=== PATIENT | male | born 1960 | race Caucasian/White ===

== ENCOUNTER 2024-01-19 11:47 | Day surgery (SDC) | payer OTHER ==
[2024-01-19 12:44] VITALS: BP 111/68; TEMP 97.4
[2024-01-19] MEDS ORDERED: PHENYLEPHRINE-NS 100 MCG/ML 10 ML SYRINGE ONE (13:32)
[2024-01-19] MEDS ORDERED: PROPOFOL 20 ML ONE (14:08)
== END 2024-01-19 14:55 | disposition home or self-care (01) ==
LOC: CSHSDC 11:47
PROVIDERS: ATTEND Internal Medicine Cardiovascular Disease
PROC: 5A2204Z Restoration of Cardiac Rhythm, Single (ICD-10-PCS; principal; 2024-01-19)
DX: I48.19 Other persistent atrial fibrillation (principal); I11.0 Hypertensive heart disease with heart failure; I50.22 Chronic systolic (congestive) heart failure; I25.2 Old myocardial infarction; M10.9 Gout, unspecified; M19.90 Unspecified osteoarthritis, unspecified site; I25.10 Atherosclerotic heart disease of native coronary artery without angina pectoris; G47.30 Sleep apnea, unspecified; E11.9 Type 2 diabetes mellitus without complications; Z79.84 Long term (current) use of oral hypoglycemic drugs; Z79.899 Other long term (current) drug therapy; Z79.51 Long term (current) use of inhaled steroids; Z79.01 Long term (current) use of anticoagulants; Z79.82 Long term (current) use of aspirin; Z88.5 Allergy status to narcotic agent; Z88.8 Allergy status to other drugs, medicaments and biological substances; Z90.89 Acquired absence of other organs; Z98.890 Other specified postprocedural states
CPT/HCPCS: 92960; 93005; 93010; J2704

== ENCOUNTER 2025-02-01 09:41 | Day surgery (SDC) | payer OTHER ==
[2025-01-24 14:55] VITALS: BMI 37.8
[2025-02-01] MEDS ORDERED: Oxymetazoline HCl 0.05% (15 ML) ONE (10:20)
[2025-02-01] MEDS ORDERED: AFRIN NASAL MIST 15 ML BOT ONE ×2 (10:30→13:25)
[2025-02-01 11:13] LABS: #Basophils 0.03 10x3/uL (0.0-0.2); #Eosinophils 0.06 10x3/uL (0.0-0.5); #Monocytes 0.67 10x3/uL (0.0-1.1); #Neutrophils 5.24 10x3/uL (1.5-8.4); %Basophils 0.4 % (0.0-2.0); %Eosinophils 0.7 % (0.0-6.0); %Lymphocytes 25.7 % (18.0-47.0); %Monocytes 8.3 % (0.0-10.0); %Neutrophils 64.7 % (40.0-75.0); Hematocrit 46.6 % (38.8-50.0); Hemoglobin 15.0 g/dL (13.5-17.5); Mean Corpuscular Hemoglobin 28.6 pg (27.0-33.0); Mean Corpuscular Volume 88.8 fL (81.2-95.1); Platelet Count 245 10x3/uL (150-450); Red Blood Cell (RBC) Count 5.25 10x6/uL (4.32-5.72); White Blood Cell (WBC) Count 8.10 10x3/uL (3.5-10.5)
[2025-02-01] MEDS ORDERED: SUGAMMADEX SODIUM 200 MG/2 ML VIAL ONE ×2 (12:49→14:51)
[2025-02-01] MEDS ORDERED: Ondansetron PF 4 MG/2 ML Vial ONE ×2 (12:49→16:34)
[2025-02-01] MEDS ORDERED: Lidocaine 1% PF 5 ML VIAL ONE (12:49)
[2025-02-01] MEDS ORDERED: Rocuronium Bromide 10 MG/ML (10ML VIAL) ONE (12:49)
[2025-02-01] MEDS ORDERED: PROPOFOL 40 ML ONE (12:49)
[2025-02-01] MEDS ORDERED: Bacitracin 1 PK ONE (13:24)
[2025-02-01] MEDS ORDERED: Lidocaine 1% w/Epinephrine 1:200K 30 ML VIAL ONE (13:25)
[2025-02-01] MEDS ORDERED: Phenylephrine 40 MG/NS 250 ML 250 ML ONE (13:50)
[2025-02-01] MEDS ORDERED: Glycopyrrolate 0.2 MG/ML 5 ML SYRINGE ONE (14:09)
== END 2025-02-01 18:00 | disposition home or self-care (01) ==
LOC: CSHSDC 09:41
PROVIDERS: ATTEND Specialist
PROC: 0CB80ZZ Excision of Right Parotid Gland, Open Approach (ICD-10-PCS; principal; 2025-02-01)
PROC: 09SM4ZZ Reposition Nasal Septum, Percutaneous Endoscopic Approach (ICD-10-PCS; principal; 2025-02-01)
PROC: 09TL8ZZ Resection of Nasal Turbinate, Via Natural or Artificial Opening Endoscopic (ICD-10-PCS; principal; 2025-02-01)
DX: J34.2 Deviated nasal septum (principal); J34.3 Hypertrophy of nasal turbinates; D11.0 Benign neoplasm of parotid gland; I11.0 Hypertensive heart disease with heart failure; I50.9 Heart failure, unspecified; E11.9 Type 2 diabetes mellitus without complications; F32.A Depression, unspecified; F41.9 Anxiety disorder, unspecified; M26.601 Right temporomandibular joint disorder, unspecified; H91.90 Unspecified hearing loss, unspecified ear; E66.9 Obesity, unspecified; Z68.37 Body mass index [BMI] 37.0-37.9, adult; Z88.8 Allergy status to other drugs, medicaments and biological substances; Z88.5 Allergy status to narcotic agent; Z79.899 Other long term (current) drug therapy
CPT/HCPCS: 85025; 88307; 88341; 88342; 93005; 93010; A6258; C1889; J0169; J1100; J2405; J2704; J3010